=== PATIENT | male | born 1985 | race Caucasian/White ===

== ENCOUNTER 2017-12-11 13:04 | Observation (INO) | payer OTHER ==
[~2017-12-11] VITALS: Ht 172.7 cm; Wt 95.0 kg
[2017-12-11] MEDS ORDERED: SODIUM CHLORIDE 0.9% 1000ML 1,000 ML IV STA (14:02)
[2017-12-11 14:17] LABS: BASO % 0.2 %; BASO ABS # 0.02 K/uL (0-0.2); EOS % 0.5 %; EOS ABS # 0.06 K/uL (0-0.5); HEMATOCRIT 44.8 % (42-52); HEMOGLOBIN 15.8 g/dL (14.0-18.0); IG# 0.03 K/uL (0.00-0.02); LYMPH % 13.7 %; LYMPH ABS # 1.55 K/uL (1.2-3.4); MEAN CELL VOLUME 88.5 fL (80-100); MEAN CORPUSCULAR HEMOGLOBIN 31.2 pg (25-34); MEAN CORPUSCULAR HGB CONC 35.3 g/dl (32-36); MEAN PLATELET VOLUME 9.6 fL (7.4-10.4); MONO % 3.4 %; MONO ABS # 0.39 K/uL (0.11-0.59); NEUT % 81.9 %; NEUT ABS # 9.28 K/uL (1.4-6.5); PLATELET COUNT 248 K/uL (130-400); RED CELL DISTRIBUTION WIDTH CV 12.6 % (11.5-14.5); WHITE BLOOD COUNT 11.33 K/uL (4.8-10.8)
[2017-12-11 14:26] LABS: ALBUMIN 4.3 gm/dl (3.4-5.0); ALT/SGPT 31 U/L (12-78); AST/SGOT 16 U/L (15-37); BLOOD UREA NITROGEN 14 mg/dl (7-18); CALCIUM 9.4 mg/dl (8.5-10.1); CARBON DIOXIDE 26 mmol/L (21-32); CREATININE 1.01 mg/dl (0.60-1.40); GLUCOSE 139 mg/dl (70-99); LIPASE 79 U/L (73-393); POTASSIUM 3.6 mmol/L (3.5-5.1); SODIUM 139 mmol/L (136-145)
[2017-12-11 14:28] LABS: ALKALINE PHOSPHATASE 88 U/L (45-117); TOTAL PROTEIN 8.4 gm/dl (6.4-8.2)
[2017-12-11] MEDS ORDERED: OPTIRAY 320 IV PRN (14:30)
--- NOTE | 2017-12-11 14:47 | DIAGNOSTIC IMAGING REPORT ---
APPENDIX ULTRASOUND HISTORY: Right groin pain. eval appendicitis, inguinal hernia COMPARISON: None. FINDINGS: Transabdominal scanning of the right lower quadrant was performed. There is a thick-walled blind-ending to this structure within the right lower quadrant. This measures up to 1.9 cm in diameter and demonstrates an edematous wall. Therefore, this is consistent with acute appendicitis. Trace periappendiceal edema. There is a 6 mm calcified appendicolith within the appendix. IMPRESSION: Acute appendicitis as described above. There is an associated 6 mm appendicolith. Electronically signed by: Jacob Lay M.D. 12/11/2017 2:46 PM Dictated Date/Time: 12/11/2017 2:43 PM
--- NOTE | 2017-12-11 14:57 | EMERGENCY ROOM VISIT NOTE ---
ED Visit Note First contact with patient: 13:54 CHIEF COMPLAINT: Right lower quadrant abdominal pain HISTORY OF PRESENTING ILLNESS: This is a 32-year-old male who presents to the emergency department with complaint of right lower quadrant pain since Monday. Patient notes about 3 weeks ago that he developed pain in his right lower abdomen after lifting some melissa of hay, he states that that pain went away, but then he developed pain again 2 days ago that has been getting progressively worse. He states that the pain has been constant, described as a dull ache, currently rates as 2/10. He has taken Tylenol and Advil for the pain with some improvement. He denies any associated nausea, vomiting, diarrhea , or constipation. He denies any bloody or black stools. He denies any urinary symptoms. He denies any fevers or chills. He denies any history of abdominal surgeries or hernias. He denies any other symptoms of chest pain, shortness of breath, back pain, dizziness or syncope, or unusual rash. REVIEW OF SYSTEMS: A complete 10 point review of systems was reviewed with the patient with pertinent positives and negatives as per history of present illness. All else were negative. PAST MEDICAL HISTORY: Migraines SOCIAL HISTORY: Lives at home. Denies tobacco use, admits to occasional alcohol use, denies recreational drug use. ALLERGIES: No known allergies. PHYSICAL EXAM: CONSTITUTIONAL: Pleasant and cooperative. No acute distress. Well appearing and well nourished. HEENT: Normocephalic, atraumatic. Pupils equal, round and reactive to light, EOMI. TMs normal. Pharynx normal. Moist mucous membranes. NECK: Supple, full active range of motion without discomfort. RESPIRATORY: Clear to auscultation bilaterally with no wheezing, crackles, rhonchi or stridor. Equal expansion bilaterally. CARDIOVASCULAR: Regular rate and rhythm with no murmurs, rubs or gallops. Normal peripheral perfusion. No edema. GASTROINTESTINAL: Moderately tender in the right lower quadrant to palpation with positive McBurney's point tenderness, and slight rebound tenderness. No guarding. Negative Rovsing, negative psoas. Soft, nondistended. No palpable masses, hernias, or HSM. Bowel sounds present in all quadrants. MUSCULOSKELETAL: Full range of motion of all joints without discomfort. INTEGUMENTARY: No rash or other significant dermatologic conditions noted. NEUROLOGIC: Alert and oriented X 4 with normal affect. Normal strength and sensation in all 4 extremities. No focal neurologic deficits noted. Normal speech. Normal gait observed ED COURSE AND MEDICAL DECISION MAKING: CC: Patient presenting with complaint of right lower quadrant abdominal pain. DIFFERENTIAL DIAGNOSIS: Includes, but not limited to appendicitis, mesenteric adenitis, inguinal hernia, incarcerated versus strangulated hernia, musculoskeletal sprain/strain, gastroenteritis, colitis, among others. INTERPRETATION OF LABS: Mild leukocytosis, no anemia, no significant electro light abnormalities, normal renal function, normal liver enzymes and lipase. UA negative for infection. IMAGING: APPENDIX ULTRASOUND HISTORY: Right groin pain. eval appendicitis, inguinal hernia COMPARISON: None. FINDINGS: Transabdominal scanning of the right lower quadrant was performed. There is a thick-walled blind-ending to this structure within the right lower quadrant. This measures up to 1.9 cm in diameter and demonstrates an edematous wall. Therefore, this is consistent with acute appendicitis. Trace periappendiceal edema. There is a 6 mm calcified appendicolith within the appendix. IMPRESSION: Acute appendicitis as described above. There is an associated 6 mm appendicolith. MEDICATION RECONCILIATION: I attest that I have personally reviewed the patient 's current medication list. INITIAL VITAL SIGNS REVIEW: I reviewed the patient's initial vital signs and interpret them as follows: T: Afebrile; BP: Hypertensive; HR: Tachycardic; RR : Within normal limits; Pulse Ox: Within normal limits on room air. Blood pressure screening: The patient was found to have an elevated blood pressure, which was felt to be situational. SUMMARY: Patient was evaluated at bedside, history and physical exam performed. Patient is alert and oriented, no acute distress, resting calmly in the stretcher. Patient has tenderness to palpation in the right lower quadrant, positive McBurney's point tenderness with slight rebound. No palpable hernia. Orders were placed at bedside for labs, UA, IV fluids for hydration, ultrasound and CT abdomen/pelvis to evaluate for appendicitis versus hernia. Patient was offered something for pain, he declines at this time. Patient discussed with Dr. Bautista, who agrees with my assessment and plan. Labs and imaging reviewed as above. Ultrasound findings consistent with acute appendicitis. I spoke on the phone with Dr. Russo, general surgeon, regarding the ultrasound findings. He is comfortable with canceling the CT and will keep the patient n.p.o. as of 3 PM. He agrees to evaluate the patient. Patient reassessed multiple times throughout ED stay, patient has remained stable and continues to have controlled pain. Tachycardia downtrending with IV fluids. Patient was updated on all results and plan for admission and surgery, he verbalized understanding and was agreeable to this plan. Patient stable at time of admission. Current/Historical Medications Scheduled Amoxicillin & Pot Clavulanate (Augmentin 875-125 mg), 1 TAB PO BID Scheduled PRN Hydrocodone/Acetaminophen 5MG/325MG ([place] 5MG/325MG), 1-2 TABLET PO q 6 hrs PRN for Pain Allergies Coded Allergies: No Known Allergies (Unverified , 12/11/17) Vital Signs Date Time Temp Pulse Resp B/P (MAP) Pulse Ox O2 Delivery O2 Flow Rate FiO2 12/11/17 15:55 84 20 149/92 96 12/11/17 15:08 113 18 159/104 96 Room Air 12/11/17 13:08 36.6 109 16 156/98 99 Room Air Laboratory Results 12/11/17 13:57 Red Blood Count 5.06, Mean Corpuscular Volume 88.5, Mean Corpuscular Hemoglobin 31.2, Mean Corpuscular Hemoglobin Concent 35.3, Mean Platelet Volume 9.6, Neutrophils (%) (Auto) 81.9, Lymphocytes (%) (Auto) 13.7, Monocytes (%) (Auto) 3.4, Eosinophils (%) (Auto) 0.5, Basophils (%) (Auto) 0.2, Neutrophils # (Auto) 9.28, Lymphocytes # (Auto) 1.55, Monocytes # (Auto) 0.39, Eosinophils # (Auto) 0.06, Basophils # (Auto) 0.02 12/11/17 13:57 Test 12/11/17 13:55 12/11/17 13:57 Urine Color DK YELLOW Urine Appearance CLEAR (CLEAR) Urine pH 6.0 (4.5-7.5) Urine Specific [place] 1.037 (1.000-1.030) Urine Protein TRACE (NEG) Urine Glucose (UA) NEG (NEG) Urine Ketones TRACE (NEG) Urine Occult Blood NEG (NEG) Urine Nitrite NEG (NEG) Urine Bilirubin NEG (NEG) Urine Urobilinogen NEG (NEG) Urine Leukocyte Esterase NEG (NEG) Urine WBC (Auto) 1-5 /hpf (0-5) Urine RBC (Auto) 0-4 /hpf (0-4) Urine Hyaline Casts (Auto) 5-10 /lpf (0-5) Urine Epithelial Cells (Auto) 20-30 /lpf (0-5) Urine Bacteria (Auto) NEG (NEG) White Blood Count 11.33 K/uL (4.8-10.8) Red Blood Count 5.06 M/uL (4.7-6.1) Hemoglobin 15.8 g/dL (14.0-18.0) Hematocrit 44.8 % (42-52) Mean Corpuscular Volume 88.5 fL (80-100) Mean Corpuscular Hemoglobin 31.2 pg (25-34) Mean Corpuscular Hemoglobin Concent 35.3 g/dl (32-36) Platelet Count 248 K/uL (130-400) Mean Platelet Volume 9.6 fL (7.4-10.4) Neutrophils (%) (Auto) 81.9 % Lymphocytes (%) (Auto) 13.7 % Monocytes (%) (Auto) 3.4 % Eosinophils (%) (Auto) 0.5 % Basophils (%) (Auto) 0.2 % Neutrophils # (Auto) 9.28 K/uL (1.4-6.5) Lymphocytes # (Auto) 1.55 K/uL (1.2-3.4) Monocytes # (Auto) 0.39 K/uL (0.11-0.59) Eosinophils # (Auto) 0.06 K/uL (0-0.5) Basophils # (Auto) 0.02 K/uL (0-0.2) RDW Standard Deviation 40.0 fL (36.4-46.3) RDW Coefficient of Variation 12.6 % (11.5-14.5) Immature Granulocyte % (Auto) 0.3 % Immature Granulocyte # (Auto) 0.03 K/uL (0.00-0.02) Anion Gap 7.0 mmol/L (3-11) Est Creatinine Clear Calc Drug Dose 115.2 ml/min Estimated GFR () 112.0 Estimated GFR (Non- 96.6 BUN/Creatinine Ratio 13.7 (10-20) Calcium Level 9.4 mg/dl (8.5-10.1) Total Bilirubin 0.2 mg/dl (0.2-1) Direct Bilirubin < 0.1 mg/dl (0-0.2) Aspartate Amino Transf (AST/SGOT) 16 U/L (15-37) Alanine Aminotransferase (ALT/SGPT) 31 U/L (12-78) Alkaline Phosphatase 88 U/L (45-117) Total Protein 8.4 gm/dl (6.4-8.2) Albumin 4.3 gm/dl (3.4-5.0) Lipase 79 U/L (73-393) Medications Administered Medications (Trade) Dose Ordered Sig/Buddy Route Start Time Stop Time Status Last Admin Dose Admin Sodium Chloride 1,000 ml @ 999 mls/hr Q1H1M STAT IV 12/11/17 14:02 12/11/17 15:02 DC 12/11/17 14:11 999 MLS/HR Bupivacaine HCl (Marcaine 0.5% MPF Inj) 30 ml STK-MED ONCE .ROUTE 12/11/17 15:36 12/11/17 15:37 DC 12/11/17 16:37 24 ML Hydromorphone HCl (Dilaudid Inj) 0.25 mg Q5M PRN IV 12/11/17 16:45 12/11/17 21:45 DC 12/11/17 17:29 0.25 MG Departure Information Impression Primary Impression: Acute appendicitis Dispostion Admitted as an inpatient Condition FAIR Prescriptions Amoxicillin & Pot Clavulanate (Augmentin 875-125 mg) 1 Tab Tab 1 TAB PO BID, #10 TAB Prov: Fei Longoria M.D. 12/11/17 Hydrocodone/Acetaminophen 5MG/325MG ([place] 5MG/325MG) Tab 1-2 TABLET PO q 6 hrs Y for Pain, #30 TAB PRN PAIN Prov: Fei Longoria M.D. 12/11/17 Referrals No Doctor, Assigned (PCP) Patient Instructions [facility] Problem Qualifiers Primary Impression: Acute appendicitis Acute appendicitis type: with localized peritonitis Qualified Codes: K35.3 - Acute appendicitis with localized peritonitis
[2017-12-11] MEDS ORDERED: NEOSTIGMINE METHYLSULFATE 5 MG/5 ML SYR ONE (15:33)
[2017-12-11] MEDS ORDERED: ONDANSETRON INJ 2 MG/ML 2 ML VIAL ONE (15:33)
[2017-12-11] MEDS ORDERED: MIDAZOLAM HCL 1 MG/ML 2ML VIAL ONE (15:33)
[2017-12-11] MEDS ORDERED: DEXAMETHASONE SOD INJ 4 MG/ML VIAL ONE (15:33)
[2017-12-11] MEDS ORDERED: LIDOCAINE HCL 2% 2 ML VIAL (20MG/ML) ONE (15:33)
[2017-12-11] MEDS ORDERED: GLYCOPYRROLATE INJ 0.2 MG/ML VIAL ONE (15:33)
[2017-12-11] MEDS ORDERED: PROPOFOL IV EMULSION 10 MG/ML 20 ML VIAL ONE (15:33)
[2017-12-11] MEDS ORDERED: FENTANYL CITRATE INJ 50 MCG/1 ML 2 ML VIAL ONE ×2 (15:34)
[2017-12-11] MEDS ORDERED: BUPIVACAINE 0.5 % 5 MG/1 ML MPF 30ML VIAL ONE (15:36)
--- NOTE | 2017-12-11 15:51 | History and Physical ---
History & Physical Date & Time of Service: December 11, 2017 at 15:43 Chief Complaint: Pain Rt Lower Ab Primary Care Physician: No Doctor, Assigned History of Present Illness 32 y/o male with lower abdominal pain began 2 days ago, increased that night but felt a little better Monday. This morning he woke with a migraine and usual symptoms of nausea and chills. Abdominal pain has improved but since this was his second episode in 3 weeks he came in for evaluation. No previous pain or abdominal surgery. Past Medical/Surgical History Medical Problems: (1) Hand laceration (2) Hand laceration (3) No Known Active Medical Problems (4) Work related injury Surgical: perc pin left thumb Family History Patient reports no known family medical history. Social History Smoking Status: Never Smoker Alcohol Use: occasionally Allergies Coded Allergies: No Known Allergies (Unverified , 12/11/17) Home Medications No Active Prescriptions or Reported Meds Review of Systems Constitutional: + chills, No fever Abdomen: + pain, + nausea Physical Exam Vital Signs Date Time Temp Pulse Resp B/P (MAP) Pulse Ox O2 Delivery O2 Flow Rate FiO2 12/11/17 15:08 113 18 159/104 96 Room Air 12/11/17 13:08 36.6 109 16 156/98 99 Room Air General Appearance: WD/WN, no apparent distress Respiratory/Chest: lungs clear, normal breath sounds Cardiovascular: regular rate, rhythm, no edema Abdomen/GI: soft, no organomegaly, + tenderness (mild RLQ, no guarding or rebound) Extremities/Musculoskelatal: normal inspection, no pedal edema Neurologic/Psych: alert, normal mood/affect Skin: normal color, warm/dry Diagnostics Laboratory Results Results Past 24 Hours Test 12/11/17 13:55 12/11/17 13:57 Range/Units Urine Color DK YELLOW Urine Appearance CLEAR CLEAR Urine pH 6.0 4.5-7.5 Urine Specific [place] 1.037 1.000-1.030 Urine Protein TRACE NEG Urine Glucose (UA) NEG NEG Urine Ketones TRACE NEG Urine Occult Blood NEG NEG Urine Nitrite NEG NEG Urine Bilirubin NEG NEG Urine Urobilinogen NEG NEG Urine Leukocyte Esterase NEG NEG Urine WBC (Auto) 1-5 0-5 /hpf Urine RBC (Auto) 0-4 0-4 /hpf Urine Hyaline Casts (Auto) 5-10 0-5 /lpf Urine Epithelial Cells (Auto) 20-30 0-5 /lpf Urine Bacteria (Auto) NEG NEG White Blood Count 11.33 4.8-10.8 K/uL Red Blood Count 5.06 4.7-6.1 M/uL Hemoglobin 15.8 14.0-18.0 g/dL Hematocrit 44.8 42-52 % Mean Corpuscular Volume 88.5 80-100 fL Mean Corpuscular Hemoglobin 31.2 25-34 pg Mean Corpuscular Hemoglobin Concent 35.3 32-36 g/dl Platelet Count 248 130-400 K/uL Mean Platelet Volume 9.6 7.4-10.4 fL Neutrophils (%) (Auto) 81.9 % Lymphocytes (%) (Auto) 13.7 % Monocytes (%) (Auto) 3.4 % Eosinophils (%) (Auto) 0.5 % Basophils (%) (Auto) 0.2 % Neutrophils # (Auto) 9.28 1.4-6.5 K/uL Lymphocytes # (Auto) 1.55 1.2-3.4 K/uL Monocytes # (Auto) 0.39 0.11-0.59 K/uL Eosinophils # (Auto) 0.06 0-0.5 K/uL Basophils # (Auto) 0.02 0-0.2 K/uL RDW Standard Deviation 40.0 36.4-46.3 fL RDW Coefficient of Variation 12.6 11.5-14.5 % Immature Granulocyte % (Auto) 0.3 % Immature Granulocyte # (Auto) 0.03 0.00-0.02 K/uL Sodium Level 139 136-145 mmol/L Potassium Level 3.6 3.5-5.1 mmol/L Chloride Level 106 98-107 mmol/L Carbon Dioxide Level 26 21-32 mmol/L Anion Gap 7.0 3-11 mmol/L Blood Urea Nitrogen 14 7-18 mg/dl Creatinine 1.01 0.60-1.40 mg/dl Est Creatinine Clear Calc Drug Dose 115.2 ml/min Estimated GFR () 112.0 Estimated GFR (Non- 96.6 BUN/Creatinine Ratio 13.7 10-20 Random Glucose 139 70-99 mg/dl Calcium Level 9.4 8.5-10.1 mg/dl Total Bilirubin 0.2 0.2-1 mg/dl Direct Bilirubin < 0.1 0-0.2 mg/dl Aspartate Amino Transf (AST/SGOT) 16 15-37 U/L Alanine Aminotransferase (ALT/SGPT) 31 12-78 U/L Alkaline Phosphatase 88 45-117 U/L Total Protein 8.4 6.4-8.2 gm/dl Albumin 4.3 3.4-5.0 gm/dl Lipase 79 73-393 U/L Diagnostic Radiology APPENDIX ULTRASOUND HISTORY: Right groin pain. eval appendicitis, inguinal hernia COMPARISON: None. FINDINGS: Transabdominal scanning of the right lower quadrant was performed. There is a thick-walled blind-ending to this structure within the right lower quadrant. This measures up to 1.9 cm in diameter and demonstrates an edematous wall. Therefore, this is consistent with acute appendicitis. Trace periappendiceal edema. There is a 6 mm calcified appendicolith within the appendix. IMPRESSION: Acute appendicitis as described above. There is an associated 6 mm appendicolith. Electronically signed by: Jacob Lay M.D. 12/11/2017 2:46 PM Dictated Date/Time: 12/11/2017 2:43 PM Impression Assessment and Plan Acute appendicitis Laparoscopic appendectomy, possible open appendectomy by Dr. Longoria. Risks of bleeding, infection or abscess and possibility of converting to open procedure were discussed with the patient. 12/11/17- pt examined- acute appendicitis- for appendectomy- laparoscopic vs open Dr Longoria
[2017-12-11] MEDS ORDERED: SUCCINYLCHOLINE CHLORIDE 20 MG/ML 10 ML VIAL IV ONE (16:38)
[2017-12-11] MEDS ORDERED: ROCURONIUM BROMIDE 10 MG/ML 5 ML VIAL ONE (16:38)
[2017-12-11] MEDS ORDERED: HYDROmorphone INJ 2 MG/ML SYR/VIAL IV PRN (16:45)
[2017-12-11] MEDS ORDERED: LABETALOL HCL IV 5 MG/ML 20ML IV PRN (16:45)
[2017-12-11] MEDS ORDERED: ATROPINE SULFATE 0.1 MG/ML 5ML SYR IV PRN (16:45)
[2017-12-11] MEDS ORDERED: ONDANSETRON INJ 2 MG/ML 2 ML VIAL IV PRN ×2 (16:45→17:15)
[2017-12-11] MEDS ORDERED: KETOROLAC TROMETHAMINE 30 MG/ML VIAL IV. PRN (16:45)
[2017-12-11] MEDS ORDERED: KETOROLAC TROMETHAMINE 30 MG/ML VIAL ONE (17:03)
--- NOTE | 2017-12-11 17:11 | [facility] Operative Report ---
Operative Report Operative Date December 11, 2017. Pre-Operative Diagnosis Acute appendicitis Post-Operative Diagnosis Acute appendicitis Procedure(s) Performed Laparoscopic Appendectomy Surgeon Dr. Longoria Ios Programmer Surgeon(s) Lalo Russo PA-C Estimated Blood Loss 10cc Findings nonperforated very large, inflamed appendix Specimens A. Appendix Drains None Anesthesia Type General Complication(s) none I attest to the content of the Intraoperative Record and any orders documented therein. Any exceptions are noted below.
[2017-12-11] MEDS ORDERED: PROMETHAZINE HCL INJ 25 MG in SODIUM CHLORIDE 0.9% 50ML 50 ML IV PRN (17:15)
[2017-12-11] MEDS ORDERED: MoRPHine SULFATE 4 MG/ML 1 ML CARP\\VIAL IV PRN ×2 (17:15)
[2017-12-11] MEDS ORDERED: HYDROCODONE/ACETAMIN 5/325MG TAB PO PRN ×2 (17:15)
[2017-12-11] MEDS ORDERED: AMOX875T PO (17:21)
[2017-12-11] MEDS ORDERED: HYDR-5688 PO (17:21)
--- NOTE | 2017-12-11 17:23 | Discharge Instructions ---
Discharge Instructions Date of Service December 11, 2017. Admission Reason for Admission: Pain Rt Lower Ab Discharge Discharge Diagnosis / Problem: acute appendicitis Discharge Goals Goal(s): Decrease discomfort, Improve function, Improve disease control Activity Recommendations Activity Limitations: as noted below Lifting Limitations: no more than 25 pounds (for 3 weeks) Exercise/Sports Limitations: until after follow-up appointment May Resume Sexual Activity: when tolerated Shower/Bathe: tomorrow Driving or Machine Use: resume 3 days after discharge . Instructions / Follow-Up Instructions / Follow-Up SPECIAL CARE INSTRUCTIONS: * Cover incisions and change daily for comfort/drainage. May leave uncovered with dermabond * Leave steri strips in place * May use ibuprofen for pain as tolerated. * Expect some swelling and bruising. Call your doctor if: * Temperature above 101 degrees * Pain not relieved by pain medicine ordered * There is increased drainage or redness from any incision * You have any unanswered questions or concerns [phone]. FOLLOW UP VISIT: If not already scheduled, please call the office for a follow-up visit. for 2 weeks- check up- call with any questions OFFICE PHONE NUMBER: Dr. Longoria Office Current Hospital Diet Patient's current hospital diet: Regular Diet Discharge Diet Recommended Diet: Regular Diet Procedures Procedures Performed: Laparoscopic Appendectomy Pending Studies Studies pending at discharge: no Medical Emergencies . Who to Call and When: Medical Emergencies: If at any time you feel your situation is an emergency, please call 911 immediately. . Non-Emergent Contact Non-Emergency issues call your: Primary Care Provider, Surgeon . "Provider Documentation" section prepared by Fei Longoria. .
[2017-12-11] MEDS ORDERED: HYDROmorphone INJ 0.5 MG/0.5 ML SYR ONE (17:29)
[2017-12-11] MEDS ORDERED: PROMETHAZINE HCL INJ 12.5 MG in SODIUM CHLORIDE 0.9% 50ML 50 ML IV PRN (17:45)
--- NOTE | 2017-12-11 17:59 | Anesthesiology Progress Note ---
Anesthesia Post Op Note Date & Time December 11, 2017 at 17:58 Vital Signs Pain Intensity: 2 Vital Signs Past 12 Hours Date Time Temp Pulse Resp B/P (MAP) Pulse Ox O2 Delivery O2 Flow Rate FiO2 12/11/17 17:50 36.6 88 16 129/75 100 Nasal Cannula 2 12/11/17 17:40 90 16 135/70 100 Oxymask 7 12/11/17 17:30 84 16 127/75 100 Oxymask 7 12/11/17 17:20 36.8 87 16 139/86 100 Oxymask 7 12/11/17 15:55 84 20 149/92 96 12/11/17 15:08 113 18 159/104 96 Room Air 12/11/17 13:08 36.6 109 16 156/98 99 Room Air Notes Mental Status: alert / awake / arousable, participated in evaluation Pt Amnestic to Procedure: Yes Nausea / Vomiting: adequately controlled Pain: adequately controlled Airway Patency, RR, SpO2: stable & adequate BP & HR: stable & adequate Hydration State: stable & adequate Anesthetic Complications: no major complications apparent
[2017-12-11 18:08] VITALS: BP 142/75; PULSE 93; TEMP 36.7; O2SAT 97; Ht 172.7 cm; Wt 95.0 kg
[2017-12-11 18:31] VITALS: BP 148/75; PULSE 90; TEMP 36.3; O2SAT 98
[2017-12-11] MEDS ORDERED: IV FLUIDS COMPLETED PRN (18:45)
[2017-12-11 18:59] VITALS: BP 145/85; PULSE 106; TEMP 36.5; O2SAT 98
[2017-12-11 19:24] VITALS: BP 136/88; PULSE 99; TEMP 36.2; O2SAT 97
[2017-12-11 20:07] VITALS: BP 134/84; PULSE 110; TEMP 36.6; O2SAT 95
--- NOTE | 2017-12-11 20:25 | OPERATIVE REPORT ---
DATE OF OPERATION: 12/11/2017 NAME OF OPERATION: Laparoscopic appendectomy. PREOPERATIVE DIAGNOSIS: Acute appendicitis. POSTOPERATIVE DIAGNOSIS: Acute appendicitis. STAFF SURGEON: Dr. Longoria. ANESTHESIA: General. WAFER CUTTER: Lalo Russo PA-C. DESCRIPTION OF PROCEDURE: Patient was brought in the operating room and placed on the operating room in supine position. Pneumatic stockings, orogastric tube were placed. His abdomen was prepped and draped in usual fashion. Patient voided preoperatively. No Rosario catheter was placed. Incision was made above the umbilicus using 0.5% plain Marcaine to anesthetize all incisions. Incision carried down to the fascia, placing a Veress needle producing pneumoperitoneum. An 11 mm port placed at this level and the camera passed. A 5 mm port was placed suprapubically and then the appendix was identified. A 12 mm port placed in left lower quadrant. The omentum was adherent to the appendix. It was bluntly dissected away and then the appendix was severely adherent to the right abdominal wall, but this was bluntly taken away and mobilized. It was severely thickened. The base appeared relatively normal. Mesoappendix was dissected and then clipped with a 10 mm clipper and then transected partially using the Endo-YANNI stapler with a 45 brown load. The additional tissue, which was a small amount of mesentery was clipped using the 10 mm clipper and then the base of the appendix and remaining mesentery transected using an Endo-YANNI 45 brown load. The appendix was placed into the Endobag and then removed through the left lower quadrant site. I did have to dilate the site slightly with a Soumya clamp to remove the large appendix. At this point, 0 Vicryl suture was placed in the left lower quadrant. After appropriate irrigation and hemostasis, which was very good, there was no purulent drainage or rupture of the appendix. There was no cloudy fluid in the abdomen at the beginning or end of the procedure. All ports were removed. The additional Vicryl suture placed in left lower quadrant to reapproximate the fascia and then 0 Vicryl suture used at the umbilical site to close the fascia and the skin reapproximated using subcuticular 4-0 Monocryl with Steri-Strips placed in left lower quadrant. Dressing applied and patient transferred to recovery room in stable condition. I attest to the content of the Intraoperative Record and any orders documented therein. Any exception s are noted below.
[2017-12-11] MEDS: CEFOXITIN IV 1,000 MG in DEXTROSE 5% 50ML 50 ML IV SCH (20:29)
[2017-12-11] MEDS: LACTATED RINGER'S 1000ML 1,000 ML IV SCH (20:30)
[2017-12-11 23:00] VITALS: BP 134/78; PULSE 111; TEMP 36.7; O2SAT 99
[2017-12-12] MEDS: CEFOXITIN IV 1,000 MG in DEXTROSE 5% 50ML 50 ML IV SCH ×2 (01:02→06:32)
[2017-12-12 03:12] VITALS: BP 142/82; PULSE 100; TEMP 36.8; O2SAT 98
[2017-12-12] MEDS ORDERED: IBUPROFEN 600 MG TAB PO PRN (05:45)
--- NOTE | 2017-12-12 05:48 | Surgery Progress Note ---
Surgery Progress Note Date of Service December 12, 2017. Subjective feels much better tolerating some fluids Objective Vital Signs: Date Time Temp Pulse Resp B/P (MAP) Pulse Ox O2 Delivery O2 Flow Rate FiO2 12/12/17 03:12 36.8 100 18 142/82 (102) 98 Room Air 12/11/17 23:20 Room Air 12/11/17 23:00 36.7 111 16 134/78 (96) 99 Room Air 12/11/17 20:07 36.6 110 16 134/84 (101) 95 Room Air 12/11/17 19:24 36.2 99 16 136/88 (104) 97 Room Air 12/11/17 18:59 36.5 106 16 145/85 (105) 98 Nasal Cannula 2.0 12/11/17 18:31 36.3 90 16 148/75 (99) 98 Nasal Cannula 2.0 12/11/17 18:30 Nasal Cannula 2.0 12/11/17 18:08 36.7 93 16 142/75 97 Nasal Cannula 2.0 12/11/17 17:50 36.6 88 16 129/75 100 Nasal Cannula 2 12/11/17 17:40 90 16 135/70 100 Oxymask 7 12/11/17 17:30 84 16 127/75 100 Oxymask 7 12/11/17 17:20 36.8 87 16 139/86 100 Oxymask 7 12/11/17 15:55 84 20 149/92 96 12/11/17 15:08 113 18 159/104 96 Room Air 12/11/17 13:08 36.6 109 16 156/98 99 Room Air General Appearance: no apparent distress Respiratory/Chest: no respiratory distress Abdomen: soft Incision(s): intact Laboratory Results: Results Past 24 Hours Test 12/11/17 13:55 12/11/17 13:57 Range/Units Urine Color DK YELLOW Urine Appearance CLEAR CLEAR Urine pH 6.0 4.5-7.5 Urine Specific [place] 1.037 1.000-1.030 Urine Protein TRACE NEG Urine Glucose (UA) NEG NEG Urine Ketones TRACE NEG Urine Occult Blood NEG NEG Urine Nitrite NEG NEG Urine Bilirubin NEG NEG Urine Urobilinogen NEG NEG Urine Leukocyte Esterase NEG NEG Urine WBC (Auto) 1-5 0-5 /hpf Urine RBC (Auto) 0-4 0-4 /hpf Urine Hyaline Casts (Auto) 5-10 0-5 /lpf Urine Epithelial Cells (Auto) 20-30 0-5 /lpf Urine Bacteria (Auto) NEG NEG White Blood Count 11.33 4.8-10.8 K/uL Red Blood Count 5.06 4.7-6.1 M/uL Hemoglobin 15.8 14.0-18.0 g/dL Hematocrit 44.8 42-52 % Mean Corpuscular Volume 88.5 80-100 fL Mean Corpuscular Hemoglobin 31.2 25-34 pg Mean Corpuscular Hemoglobin Concent 35.3 32-36 g/dl Platelet Count 248 130-400 K/uL Mean Platelet Volume 9.6 7.4-10.4 fL Neutrophils (%) (Auto) 81.9 % Lymphocytes (%) (Auto) 13.7 % Monocytes (%) (Auto) 3.4 % Eosinophils (%) (Auto) 0.5 % Basophils (%) (Auto) 0.2 % Neutrophils # (Auto) 9.28 1.4-6.5 K/uL Lymphocytes # (Auto) 1.55 1.2-3.4 K/uL Monocytes # (Auto) 0.39 0.11-0.59 K/uL Eosinophils # (Auto) 0.06 0-0.5 K/uL Basophils # (Auto) 0.02 0-0.2 K/uL RDW Standard Deviation 40.0 36.4-46.3 fL RDW Coefficient of Variation 12.6 11.5-14.5 % Immature Granulocyte % (Auto) 0.3 % Immature Granulocyte # (Auto) 0.03 0.00-0.02 K/uL Sodium Level 139 136-145 mmol/L Potassium Level 3.6 3.5-5.1 mmol/L Chloride Level 106 98-107 mmol/L Carbon Dioxide Level 26 21-32 mmol/L Anion Gap 7.0 3-11 mmol/L Blood Urea Nitrogen 14 7-18 mg/dl Creatinine 1.01 0.60-1.40 mg/dl Est Creatinine Clear Calc Drug Dose 115.2 ml/min Estimated GFR () 112.0 Estimated GFR (Non- 96.6 BUN/Creatinine Ratio 13.7 10-20 Random Glucose 139 70-99 mg/dl Calcium Level 9.4 8.5-10.1 mg/dl Total Bilirubin 0.2 0.2-1 mg/dl Direct Bilirubin < 0.1 0-0.2 mg/dl Aspartate Amino Transf (AST/SGOT) 16 15-37 U/L Alanine Aminotransferase (ALT/SGPT) 31 12-78 U/L Alkaline Phosphatase 88 45-117 U/L Total Protein 8.4 6.4-8.2 gm/dl Albumin 4.3 3.4-5.0 gm/dl Lipase 79 73-393 U/L Assessment & Plan 12/12/17- s/p lap appendectomy- nonperforated but severely inflamed monitor progress this am- possible d/c later today
[2017-12-12 06:47] LABS: HEMATOCRIT 40.8 % (42-52); HEMOGLOBIN 14.1 g/dL (14.0-18.0); MEAN CELL VOLUME 89.5 fL (80-100); MEAN CORPUSCULAR HEMOGLOBIN 30.9 pg (25-34); MEAN CORPUSCULAR HGB CONC 34.6 g/dl (32-36); MEAN PLATELET VOLUME 9.3 fL (7.4-10.4); PLATELET COUNT 237 K/uL (130-400); RED CELL DISTRIBUTION WIDTH CV 12.7 % (11.5-14.5); RED CELL DISTRIBUTION WIDTH SD 41.1 fL (36.4-46.3); WHITE BLOOD COUNT 10.84 K/uL (4.8-10.8)
[2017-12-12 07:07] LABS: CALCIUM 8.8 mg/dl (8.5-10.1); CREATININE 0.73 mg/dl (0.60-1.40); POTASSIUM 4.1 mmol/L (3.5-5.1)
[2017-12-12 07:15] VITALS: BP 145/88; PULSE 99; TEMP 36.8; O2SAT 98
[2017-12-12] MEDS: LACTATED RINGER'S 1000ML 1,000 ML IV SCH (07:27)
--- NOTE | 2017-12-12 08:11 | Anesthesiology Progress Note ---
Anesthesia Post Op Note Date & Time December 12, 2017 at 08:10 Vital Signs Pain Intensity: 3.0 Vital Signs Past 12 Hours Date Time Temp Pulse Resp B/P (MAP) Pulse Ox O2 Delivery O2 Flow Rate FiO2 12/12/17 07:15 36.8 99 16 145/88 (107) 98 Room Air 12/12/17 03:12 36.8 100 18 142/82 (102) 98 Room Air 12/11/17 23:20 Room Air 12/11/17 23:00 36.7 111 16 134/78 (96) 99 Room Air Notes Mental Status: alert / awake / arousable, participated in evaluation Pt Amnestic to Procedure: Yes Nausea / Vomiting: adequately controlled Pain: adequately controlled Airway Patency, RR, SpO2: stable & adequate BP & HR: stable & adequate Hydration State: stable & adequate Anesthetic Complications: no major complications apparent
[2017-12-12 11:59] VITALS: BP 145/88; PULSE 99; TEMP 36.8; O2SAT 98
--- NOTE | 2017-12-12 12:08 | DISCHARGE SUMMARY ---
PRINCIPAL DIAGNOSIS: Acute appendicitis. PROCEDURE: Patient underwent laparoscopic appendectomy. HISTORY OF PRESENT ILLNESS: Patient is a 32-year-old male presenting to the Emergency Room with persistent right lower abdominal pain, found on ultrasound to have findings consistent with acute appendicitis. HOSPITAL COURSE: Patient was brought in the hospital on 12/11/2017 and was taken to the operating room where he underwent laparoscopic appendectomy. He had severe acute appendicitis with no perforation. He tolerated the procedure well and has done well overnight and is felt stable for discharge home today to be followed in the surgical clinic within 1-2 weeks.
== END 2017-12-12 12:27 | disposition home or self-care (01) ==
LOC: C.EDB 13:05 → C.MSW 17:15 → ENRESERV 17:46
PROVIDERS: ADMIT Surgery; ATTEND Surgery
DX: K35.80 Unspecified acute appendicitis (principal)